=== PATIENT | male | born 1995 | race Two or more races ===

== ENCOUNTER 2023-12-03 09:26 | Emergency (ER) | payer OTHER ==
[~2023-12-03] VITALS: Ht 172.7 cm; Wt 65.8 kg
[2023-12-03 09:52] VITALS: TEMP 98.2
[2023-12-03 10:05] VITALS: BP 122/76; O2SAT 100
== END 2023-12-03 10:05 | disposition home or self-care (01) ==
LOC: ER 09:32
DX: F41.9 Anxiety disorder, unspecified (principal)